=== PATIENT | male | born 1955 | race Caucasian/White ===

== ENCOUNTER 2019-08-26 11:48 | Inpatient (IN) | payer MEDICARE ==
[~2019-08-26] VITALS: Ht 175.3 cm; Wt 91.2 kg
[~2019-08-26 11:48] MED LIST: ATOR10 PO; CYCL10 PO; Glucophage1000 MG PO; METO100ER PO; Omeprazole20 M1 PO; Viagra100 MG PO; ZESTORETIC 20-251 EA PO
[2019-08-26] MEDS ORDERED: VASCULERA630 MG PO (13:09)
[2019-08-26] MEDS ORDERED: LIRA0.6P SC (13:09)
[2019-08-26 13:28] LABS: BASOPHILS ABSOLUTE AUTO 0.06 K/mm3 (0.00-0.23); BASOPHILS PERCENT AUTO 0 % (0-2); EOSINOPHILS PERCENT AUTO 0 % (0-6); Hemoglobin 14.4 g/dL (13.5-17.5); IMMATURE GRAN ABSOLUTE AUTO 0.18 K/mm3 (0.00-0.10); IMMATURE GRAN PERCENT AUTO 1 % (0-1); LYMPHOCYTES ABSOLUTE AUTO 1.21 K/mm3 (0.84-5.20); LYMPHOCYTES PERCENT AUTO 6 % (21-46); MONOCYTES ABSOLUTE AUTO 0.91 K/mm3 (0.16-1.47); MONOCYTES PERCENT AUTO 4 % (4-13); Mean Corpuscular HGB 30.9 pg (26.0-34.0); Mean Corpuscular HGB Conc 34.3 g/dL (31.5-36.5); Mean Corpuscular Volume 90 fL (80-100); Mean Platelet Volume 10.6 fL (9.1-12.4); NEUTROPHILS ABSOLUTE AUTO 18.31 K/mm3 (1.96-9.15); NEUTROPHILS PERCENT AUTO 89 % (41-73); Platelet Count 309 K/mm3 (150-400); RDW Coefficient Variation 12.3 % (11.7-14.2); RDW Standard Deviation 40.8 fL (35.1-46.3); Red Blood Cell Count 4.66 M/mm3 (4.30-5.90); White Blood Cell Count 20.67 K/mm3 (4.00-11.30)
[2019-08-26 13:51] LABS: Albumin, Blood 3.2 g/dL (3.4-5.0); Albumin/Globulin Ratio 0.6 (0.8-1.8); Bilirubin, Total 1.7 mg/dL (0.1-1.0); Bun/Creatinine Ratio 17.9 (12.0-20.0); Calcium, Blood 9.8 mg/dL (8.5-10.1); Creatinine, Blood 2.29 mg/dL (0.60-1.20); Globulin, Blood 5.4 g/dL (2.2-4.0); Potassium, Blood 3.4 mmol/L (3.5-5.5); Total Protein, Blood 8.6 g/dL (6.4-8.2)
[2019-08-26 14:05] LABS: Source, Urine Clean Catch
[2019-08-26 14:09] LABS: Appearance, Urine Cloudy (Clear); Blood, Urine 4+ (Neg); Color, Urine Yellow (P-Yellow); Glucose Qualitative, Urine 2+ (Neg); Ketones, Urine 1+ (Neg); Leukocyte Esterase, Urine 3+ (Neg); Nitrite, Urine Neg (Neg); Protein, Urine 3+ (Neg); Urobilinogen, Urine 2+ (Normal)
[2019-08-26 14:21] LABS: Bacteria Many /hpf; Bilirubin, Urine 1+ (Neg); Squamous Epithelial Cells Mod /hpf (Few); White Blood Cells, Urine 50-100 /hpf (0-5)
[2019-08-26 14:22] LABS: Mucus Mod (0-Heavy)
[2019-08-26] MEDS ORDERED: PIOGLITAZONE HC15 MG PO (15:50)
[2019-08-26] MEDS ORDERED: BASAGLAR K100 UNIT/2 SC (16:23)
--- NOTE | 2019-08-26 17:54 | NUR ---
SUMMARY Assumed care of pt upon arrival to unit at 1645 from emergency department. Pt arrived accompanied by Maria De Jesus RN and spouse. Independently transferred from ED gurney to ICU bed. Pt PCU status. Pt on room air. Sinus rhtyhm per monitor. Pt and spouse state that pt has had poor appetite for 9 days. Pt states he is feeling much better than he did upon arrival to ED and states he would like something to eat. Pt verbalizes understanding of fall prevention interventions. NS infusing per orders. Bed in lowest position. Call light in reach. Pt denies need at this time.
[2019-08-26 18:36] LABS: Albumin, Blood 2.4 g/dL (3.4-5.0); Albumin/Globulin Ratio 0.6 (0.8-1.8); Bilirubin, Total 0.8 mg/dL (0.1-1.0); Bun/Creatinine Ratio 19.3 (12.0-20.0); Calcium, Blood 8.2 mg/dL (8.5-10.1); Creatinine, Blood 2.02 mg/dL (0.60-1.20); Globulin, Blood 4.3 g/dL (2.2-4.0); Magnesium, Blood 1.6 mg/dL (1.6-2.4); Phosphorus, Blood 2.6 mg/dL (2.5-4.9); Potassium, Blood 3.3 mmol/L (3.5-5.5); Total Protein, Blood 6.7 g/dL (6.4-8.2)
--- NOTE | 2019-08-26 19:00 | NUR ---
ASSUMED CARE ASSUMED CARE OF PATIENT. AWAKE AND ALERT. ORIENTED AND COOPERATIVE. REPOSITIONS SELF IN BED. UP TO BSC WITH STANDBY ASSIST. DENIES C/O PAIN OR DISCOMFORT. MONITOR SHOWS NSR, RATE 70s. RESPIRATIONS EVEN AND UNLABORED. RA SATS STABLE. SEE SHIFT ASSESSMENT FOR FULL ASSESSMENT.
[2019-08-26 22:14] LABS: Chloride, Urine, Random 48 mmol/L (55-125); Sodium, Urine, Random 48 mmol/L (20-110)
[2019-08-27 03:28] LABS: BASOPHILS ABSOLUTE AUTO 0.01 K/mm3 (0.00-0.23); BASOPHILS PERCENT AUTO 0 % (0-2); EOSINOPHILS ABSOLUTE AUTO 0.03 K/mm3 (0.00-0.68); EOSINOPHILS PERCENT AUTO 1 % (0-6); Hematocrit 32.3 % (37.0-53.0); Hemoglobin 11.1 g/dL (13.5-17.5); IMMATURE GRAN ABSOLUTE AUTO 0.06 K/mm3 (0.00-0.10); IMMATURE GRAN PERCENT AUTO 1 % (0-1); LYMPHOCYTES ABSOLUTE AUTO 1.08 K/mm3 (0.84-5.20); LYMPHOCYTES PERCENT AUTO 17 % (21-46); MONOCYTES ABSOLUTE AUTO 0.56 K/mm3 (0.16-1.47); MONOCYTES PERCENT AUTO 9 % (4-13); Mean Corpuscular HGB 30.5 pg (26.0-34.0); Mean Corpuscular HGB Conc 34.4 g/dL (31.5-36.5); Mean Corpuscular Volume 89 fL (80-100); Mean Platelet Volume 9.9 fL (9.1-12.4); NEUTROPHILS ABSOLUTE AUTO 4.54 K/mm3 (1.96-9.15); NEUTROPHILS PERCENT AUTO 72 % (41-73); Platelet Count 213 K/mm3 (150-400); RDW Coefficient Variation 12.3 % (11.7-14.2); RDW Standard Deviation 39.7 fL (35.1-46.3); Red Blood Cell Count 3.64 M/mm3 (4.30-5.90); White Blood Cell Count 6.28 K/mm3 (4.00-11.30)
[2019-08-27 03:45] LABS: Albumin, Blood 2.3 g/dL (3.4-5.0); Albumin/Globulin Ratio 0.6 (0.8-1.8); Bilirubin, Total 0.9 mg/dL (0.1-1.0); Bun/Creatinine Ratio 20.2 (12.0-20.0); Calcium, Blood 8.1 mg/dL (8.5-10.1); Creatinine, Blood 1.68 mg/dL (0.60-1.20); Globulin, Blood 3.9 g/dL (2.2-4.0); Potassium, Blood 3.3 mmol/L (3.5-5.5); Total Protein, Blood 6.2 g/dL (6.4-8.2)
--- NOTE | 2019-08-27 05:56 | NUR ---
SHIFT SUMMARY NO ACUTE CHANGES DURING NOC. SLEPT INTERMITTENTLY. ORIENTED AND COOPERATIVE. UP TO BSC WITH STANDBY ASSIST WITHOUT DIFFICULTY. VOIDING WITHOUT DIFFICULTY. MONITOR SHOWS NSR. BP STABLE. TMAX 99.5F DURING SHIFT. RESPIRATIONS EVEN AND UNLABORED. RA SATS STABLE. NS INFUSING @ 150CC/HR PER ORDER. DENIES C/O PAIN OR NAUSEA. WILL REPORT TO DAY SHIFT RN WHEN AVAILABLE.
--- NOTE | 2019-08-27 07:00 | NUR ---
Recieved report from noc RN. Patient laying in bed and awakens easily to verbal stimuli. He is on RA and sats 96%. He is alert and oriented and is able to communicate his needs and denie any current pain. He has 18ga LFA dressing intact and site WNL's and is infusing NS at 150ml/hr. He also has 20ga RFA dressing intcat and site WNL's and is flushed and SL'd HR 80's, 146/76 and temp 98.2. Patient is very pleasant and hopes to go home today. He has urinal at bedside and uses appropriately.
--- NOTE | 2019-08-27 09:34 | NUR ---
Patient tolerated breakfast and meds well. came by and stayed breif time. He is up to bedside cammode ans SBA and ambulated well. He remains on RA and statesd he feels that he is at almost 100% of how he feels normally. He ndenies any current needs or pain. VSS
--- NOTE | 2019-08-27 11:59 | NUR ---
Patient up up to bedside cammode several times and transfered without difficulty. He ambulated to shower and is currently in there. VSS. He has had several visitors. He denies any pain or needs.
--- NOTE | 2019-08-27 13:58 | NUR ---
OT IN WITH PATIENT, NO SIGNIFICANT CHANGES. VSS
--- NOTE | 2019-08-27 16:23 | NUR ---
Patient up to bedside cammode. CBG 168 and received 3 units Humalog. VSS. NS reduced to 100ml/hr. No other significant changes.
--- NOTE | 2019-08-27 18:32 | NUR ---
Patient resting in bed watching TV with at bedside. Should be discharged home tomorrow. VSS. Remains on RA sats upper 90%'s. He continues NS at 100ml/hr.
--- NOTE | 2019-08-27 18:47 | NUR ---
Mr. Izquierdo is a very pleasant man who was open to visit. Per admit trigger, I spoke to him about the benfits and purpose of advanced care planning. He was interested, but want to do this paperwork post-discharge. He reports a strong fausto in a Gentle and loving God. Prayer and continued encouragement offered. I will remain available.
--- NOTE | 2019-08-27 19:15 | NUR ---
ASSUMED CARE BEDSIDE REPORT RECIEVED. PT IS LAYING IN BED, AWAKE, ALERT, AND ORIENTED. PT DENIES PAIN OR DISCOMFORT. VITAL SIGNS STABLE. PT ON RA. NS INFUSING AT 100 ML/HR. PT GETS UP TO BSC INDEPENDENTLY. NO FAMILY AT BEDSIDE. WILL CONTINUE TO MONITOR.
[2019-08-28 03:56] LABS: BASOPHILS ABSOLUTE AUTO 0.01 K/mm3 (0.00-0.23); BASOPHILS PERCENT AUTO 0 % (0-2); EOSINOPHILS ABSOLUTE AUTO 0.07 K/mm3 (0.00-0.68); EOSINOPHILS PERCENT AUTO 1 % (0-6); Hematocrit 31.9 % (37.0-53.0); Hemoglobin 10.8 g/dL (13.5-17.5); IMMATURE GRAN ABSOLUTE AUTO 0.04 K/mm3 (0.00-0.10); IMMATURE GRAN PERCENT AUTO 1 % (0-1); LYMPHOCYTES ABSOLUTE AUTO 1.34 K/mm3 (0.84-5.20); LYMPHOCYTES PERCENT AUTO 22 % (21-46); MONOCYTES ABSOLUTE AUTO 0.67 K/mm3 (0.16-1.47); MONOCYTES PERCENT AUTO 11 % (4-13); Mean Corpuscular HGB 30.2 pg (26.0-34.0); Mean Corpuscular HGB Conc 33.9 g/dL (31.5-36.5); Mean Corpuscular Volume 89 fL (80-100); Mean Platelet Volume 9.9 fL (9.1-12.4); NEUTROPHILS ABSOLUTE AUTO 3.92 K/mm3 (1.96-9.15); NEUTROPHILS PERCENT AUTO 65 % (41-73); Platelet Count 211 K/mm3 (150-400); RDW Coefficient Variation 12.2 % (11.7-14.2); Red Blood Cell Count 3.58 M/mm3 (4.30-5.90); White Blood Cell Count 6.05 K/mm3 (4.00-11.30)
[2019-08-28 04:13] LABS: Albumin, Blood 2.2 g/dL (3.4-5.0); Albumin/Globulin Ratio 0.6 (0.8-1.8); Bilirubin, Total 0.7 mg/dL (0.1-1.0); Bun/Creatinine Ratio 17.4 (12.0-20.0); C-REACTIVE PROTEIN, EXT RANGE 6.34 mg/dL (0.000-0.300); Calcium, Blood 8.2 mg/dL (8.5-10.1); Creatinine, Blood 1.38 mg/dL (0.60-1.20); Globulin, Blood 3.7 g/dL (2.2-4.0); Potassium, Blood 3.2 mmol/L (3.5-5.5); Total Protein, Blood 5.9 g/dL (6.4-8.2)
--- NOTE | 2019-08-28 05:49 | NUR ---
SHIFT SUMMARY NO ACUTE CHANGES THIS SHIFT. PT HAS SLEPT THROUGHOUT THE NIGHT. WHEN AWAKE PT IS ALERT AND ORIENTED. PT HAS DENIED PAIN OR DISCOMFORT. VITAL SIGNS HAVE REMAINED STABLE, PT ON ROOM AIR. NS INFUSING AT 100 ML/HR. PT UP TO BSC INDEPENDENTLY THROUGHOUT THE SHIFT. WILL CONTINUE TO MONITOR AND REPORT OFF TO ONCOMING RN.
[2019-08-28] MEDS ORDERED: CEFP200 PO (12:35)
[2019-08-28] MEDS ORDERED: LEVFLO500 PO (12:36)
[2019-08-28] MEDS ORDERED: Florastor250 MG PO (12:36)
[2019-08-28] MEDS ORDERED: LISI5 PO (12:37)
== END 2019-08-28 13:25 | disposition home or self-care (01) | DRG 872 ==
LOC: ER 11:48 → ICUW 15:43 → ICUE 16:46
PROVIDERS: Emergency Medicine; Physician Assistant; ADMIT Hospitalist
DX: A41.59 Other Gram-negative sepsis (principal); N17.9 Acute kidney failure, unspecified; N39.0 Urinary tract infection, site not specified; R65.20 Severe sepsis without septic shock; Z79.4 Long term (current) use of insulin; Z87.891 Personal history of nicotine dependence; K44.9 Diaphragmatic hernia without obstruction or gangrene; R16.1 Splenomegaly, not elsewhere classified; Z85.46 Personal history of malignant neoplasm of prostate; K21.9 Gastro-esophageal reflux disease without esophagitis; E78.5 Hyperlipidemia, unspecified; N18.3 Chronic kidney disease, stage 3 (moderate); I12.9 Hypertensive chronic kidney disease with stage 1 through stage 4 chronic kidney disease, or unspecified chronic kidney disease; G47.33 Obstructive sleep apnea (adult) (pediatric); E11.22 Type 2 diabetes mellitus with diabetic chronic kidney disease; N52.9 Male erectile dysfunction, unspecified
CPT/HCPCS: 36415; 71046; 74176; 80053; 81001; 82436; 82947; 83605; 83735; 84100; 84300; 84484; 85025; 86140; 87040; 87077; 87086; 87186; 93005; 93010; 96361; 96365; 96367; 96372-59; 97162; 97165; 97530; 97535; 99285-25; A9270-GY; J0696; J1650; J1956; J7030

== ENCOUNTER 2020-12-07 08:24 | Day surgery (SDC) | payer OTHER ==
[~2020-12-07] VITALS: Ht 172.7 cm; Wt 97.0 kg
[~2020-12-07 08:24] MED LIST changes: +ATOR20 PO; +BASAGLAR K100 UNIT/1 SC; +BASAGLAR K100 UNIT/2 SC; +CEFP200 PO; +Cialis5 MG; +Florastor250 MG PO; +LEVFLO500 PO; +LIRA0.6P SC; +LISI5 PO; +METOPROLOL TAR100 M2 PO; +OMEP20ER PO; +PIOG15 PO; +PIOGLITAZONE HC15 MG PO; +Prinivil10 MG PO; +SUCR1 PO; +VASCULERA630 MG PO; +VICTOZA 2-0.6 MG/0.1 SC
== END 2020-12-07 10:22 | disposition home or self-care (01) ==
LOC: ORSCSDS 08:24
PROVIDERS: Student in an Organized Health Care Education/Training Program
PROC: 0DB58ZX Excision of Esophagus, Via Natural or Artificial Opening Endoscopic, Diagnostic (ICD-10-PCS; principal; 2020-12-07 09:45)
PROC: 0DB48ZX Excision of Esophagogastric Junction, Via Natural or Artificial Opening Endoscopic, Diagnostic (ICD-10-PCS; principal; 2020-12-07 09:45)
DX: R13.10 Dysphagia, unspecified (principal); K21.9 Gastro-esophageal reflux disease without esophagitis; I10 Essential (primary) hypertension; E78.5 Hyperlipidemia, unspecified; E11.9 Type 2 diabetes mellitus without complications; K44.9 Diaphragmatic hernia without obstruction or gangrene; E66.9 Obesity, unspecified; Z68.32 Body mass index [BMI] 32.0-32.9, adult; Z79.4 Long term (current) use of insulin; Z79.899 Other long term (current) drug therapy
CPT/HCPCS: 82947; 88305; J2250; J2704; J7120

== ENCOUNTER → 2021-03-15 | Outpatient (CLI) | payer OTHER ==
[2021-03-15 17:26] LABS: BASOPHILS ABSOLUTE AUTO 0.04 K/mm3 (0.00-0.23); BASOPHILS PERCENT AUTO 1 % (0-2); EOSINOPHILS ABSOLUTE AUTO 0.15 K/mm3 (0.00-0.68); EOSINOPHILS PERCENT AUTO 3 % (0-6); Hematocrit 38.5 % (37.0-53.0); Hemoglobin 12.6 g/dL (13.5-17.5); IMMATURE GRAN ABSOLUTE AUTO 0.02 K/mm3 (0.00-0.10); IMMATURE GRAN PERCENT AUTO 0 % (0-1); LYMPHOCYTES ABSOLUTE AUTO 1.54 K/mm3 (0.84-5.20); LYMPHOCYTES PERCENT AUTO 27 % (21-46); MONOCYTES ABSOLUTE AUTO 0.46 K/mm3 (0.16-1.47); MONOCYTES PERCENT AUTO 8 % (4-13); Mean Corpuscular HGB 30.7 pg (26.0-34.0); Mean Corpuscular HGB Conc 32.7 g/dL (31.5-36.5); Mean Corpuscular Volume 94 fL (80-100); Mean Platelet Volume 11.5 fL (9.1-12.4); NEUTROPHILS ABSOLUTE AUTO 3.57 K/mm3 (1.96-9.15); NEUTROPHILS PERCENT AUTO 62 % (41-73); Platelet Count 157 K/mm3 (150-400); RDW Coefficient Variation 13.3 % (11.7-14.2); RDW Standard Deviation 45.1 fL (35.1-46.3); White Blood Cell Count 5.78 K/mm3 (4.00-11.30)
[2021-03-15 17:34] LABS: Albumin, Blood 3.7 g/dL (3.4-5.0); Albumin/Globulin Ratio 1.1 (0.8-1.8); Bilirubin, Total 1.6 mg/dL (0.1-1.0); Bun/Creatinine Ratio 16.6 (12.0-20.0); Calcium, Blood 9.2 mg/dL (8.5-10.1); Creatinine, Blood 1.75 mg/dL (0.60-1.20); Globulin, Blood 3.3 g/dL (2.2-4.0); Potassium, Blood 3.4 mmol/L (3.5-5.5)
== END ==
LOC: LAB SHORT 17:18 → PLD 17:18
PROVIDERS: Family Medicine
DX: R60.0 Localized edema (principal)
CPT/HCPCS: 80053; 83880; 85025

== ENCOUNTER 2021-08-25 06:28 | Day surgery (SDC) | payer OTHER ==
[~2021-08-25] VITALS: Ht 170.2 cm; Wt 97.0 kg
[2021-08-25] MEDS ORDERED: FURO40 PO (07:17)
[2021-08-25] MEDS ORDERED: POTA10T PO (07:19)
[2021-08-25 07:31] LABS: BASOPHILS ABSOLUTE AUTO 0.03 K/mm3 (0.00-0.23); BASOPHILS PERCENT AUTO 0 % (0-2); EOSINOPHILS PERCENT AUTO 3 % (0-6); Hematocrit 42.5 % (37.0-53.0); Hemoglobin 14.4 g/dL (13.5-17.5); IMMATURE GRAN ABSOLUTE AUTO 0.02 K/mm3 (0.00-0.10); IMMATURE GRAN PERCENT AUTO 0 % (0-1); LYMPHOCYTES ABSOLUTE AUTO 1.19 K/mm3 (0.84-5.20); LYMPHOCYTES PERCENT AUTO 16 % (21-46); MONOCYTES ABSOLUTE AUTO 0.61 K/mm3 (0.16-1.47); MONOCYTES PERCENT AUTO 8 % (4-13); Mean Corpuscular HGB 30.8 pg (26.0-34.0); Mean Corpuscular HGB Conc 33.9 g/dL (31.5-36.5); Mean Corpuscular Volume 91 fL (80-100); Mean Platelet Volume 10.8 fL (9.1-12.4); NEUTROPHILS PERCENT AUTO 72 % (41-73); Platelet Count 178 K/mm3 (150-400); RDW Coefficient Variation 13.8 % (11.7-14.2); Red Blood Cell Count 4.67 M/mm3 (4.30-5.90); White Blood Cell Count 7.35 K/mm3 (4.00-11.30)
[2021-08-25 07:48] LABS: International Normalized Ratio 1.16; Prothrombin Time Results 12.1 Sec (9.7-11.5)
[2021-08-25 07:58] LABS: Bun/Creatinine Ratio 16.3 (12.0-20.0); Calcium, Blood 8.9 mg/dL (8.5-10.1); Creatinine, Blood 1.23 mg/dL (0.60-1.20); Potassium, Blood 3.7 mmol/L (3.5-5.5)
--- NOTE | 2021-08-25 09:00 | NUR ---
[facility]. alert and oriented. TR band in place to right radial artery. site soft and nontender. no hematoma. no bleeding.
--- NOTE | 2021-08-25 10:45 | NUR ---
TR BAND IN PLACE. CONTINUING TO REMOVE AIR IN INCREMENTS OF 2CC. SITE REMAINS SFT AND NONTENDER.
--- NOTE | 2021-08-25 11:10 | NUR ---
AIR COMPLETELY REMOVED FROM TR BAND. TR BAND REMAINS IN PLACE. SITE SOFT AND NON TENDER.
--- NOTE | 2021-08-25 11:35 | NUR ---
BEGAN REMOVAL OF AIOR FROM TR BAND. SITE CLEAR NO BLEEDING, NO HEMATOMA.
--- NOTE | 2021-08-25 12:00 | NUR ---
PATIENT UP TO RESTROOM. PATEINT DRESSING SELF WITH SOME ASSIST WITH SHOES. TR BAND REMOVED SITE WITHOUT BLEEDING OR HEMATOMA. CLOTH DOT PLACED TO SITE AND ARM BOARD PLACED TO RIGHT WRIST. IV SITE DCED WITH ACTHETER IN TACT.
--- NOTE | 2021-08-25 12:20 | NUR ---
PATIENT VERBALIZED UNDERSTANDING OF DISCHARGE INSTRUCTIONS AND PRECAUTIONS. TAKEN TO IN WAITING CAR VIA [facility] CHAIR BY CHARLIE URBAN
== END 2021-08-25 12:33 | disposition home or self-care (01) ==
LOC: MHTC 06:28
PROVIDERS: Internal Medicine Cardiovascular Disease
DX: I25.118 Atherosclerotic heart disease of native coronary artery with other forms of angina pectoris (principal); I11.0 Hypertensive heart disease with heart failure; I50.21 Acute systolic (congestive) heart failure; I25.5 Ischemic cardiomyopathy; E11.9 Type 2 diabetes mellitus without complications; Z79.84 Long term (current) use of oral hypoglycemic drugs
CPT/HCPCS: 76937; 80048; 85025; 85610; 93454; 99152; 99153; C1769; C1887; C1894; J1644; J2250; J3010; J7030; J7050; Q9967

== ENCOUNTER 2021-10-17 08:38 | Emergency (ER) | payer OTHER ==
[~2021-10-17] VITALS: Ht 172.7 cm; Wt 97.1 kg
[~2021-10-17 08:38] MED LIST changes: +FURO40 PO; +POTA10T PO
[2021-10-17] MEDS ORDERED: LISI20 PO (09:15)
[2021-10-17] MEDS ORDERED: FUROSEMIDE40 MG PO (09:15)
[2021-10-17] MEDS ORDERED: NITROGLYCERIN0.4 M3 SL (09:16)
[2021-10-17] MEDS ORDERED: ATOR10 PO (09:18)
[2021-10-17 09:54] LABS: Influenza A, PCR NEGATIVE (NEGATIVE); Influenza B, PCR NEGATIVE (NEGATIVE); Resp Syncytial Virus, PCR NEGATIVE (NEGATIVE)
[2021-10-17 09:55] LABS: SARS-Cov-2 (COVID-19) PCR, MMC POSITIVE (NEGATIVE)
[2021-10-17 11:25] LABS: BASOPHILS ABSOLUTE AUTO 0.01 K/mm3 (0.00-0.23); BASOPHILS PERCENT AUTO 0 % (0-2); EOSINOPHILS PERCENT AUTO 0 % (0-6); Hematocrit 41.4 % (37.0-53.0); IMMATURE GRAN ABSOLUTE AUTO 0.02 K/mm3 (0.00-0.10); IMMATURE GRAN PERCENT AUTO 1 % (0-1); LYMPHOCYTES ABSOLUTE AUTO 0.59 K/mm3 (0.84-5.20); LYMPHOCYTES PERCENT AUTO 19 % (21-46); MONOCYTES PERCENT AUTO 6 % (4-13); Mean Corpuscular HGB 30.2 pg (26.0-34.0); Mean Corpuscular HGB Conc 33.8 g/dL (31.5-36.5); Mean Corpuscular Volume 89 fL (80-100); Mean Platelet Volume 11.6 fL (9.1-12.4); NEUTROPHILS PERCENT AUTO 74 % (41-73); Platelet Count 101 K/mm3 (150-400); RDW Coefficient Variation 12.8 % (11.7-14.2); Red Blood Cell Count 4.63 M/mm3 (4.30-5.90); White Blood Cell Count 3.12 K/mm3 (4.00-11.30)
[2021-10-17 11:33] LABS: Albumin, Blood 3.6 g/dL (3.4-5.0); Albumin/Globulin Ratio 0.9 (0.8-1.8); Bilirubin, Total 1.4 mg/dL (0.1-1.0); Bun/Creatinine Ratio 15.9 (12.0-20.0); Calcium, Blood 9.2 mg/dL (8.5-10.1); Creatinine, Blood 1.45 mg/dL (0.60-1.20); Globulin, Blood 4.1 g/dL (2.2-4.0); Potassium, Blood 3.3 mmol/L (3.5-5.5); Total Protein, Blood 7.7 g/dL (6.4-8.2)
[2021-10-17 11:46] LABS: International Normalized Ratio 1.14; Prothrombin Time Results 11.9 Sec (9.7-11.5)
[2021-10-17] MEDS ORDERED: Aspirin EC81 MG PO (12:41)
== END 2021-10-17 13:05 | disposition home or self-care (01) ==
LOC: ER 08:38
PROVIDERS: Emergency Medicine
DX: U07.1 COVID-19 (principal); R55 Syncope and collapse; I10 Essential (primary) hypertension; R04.2 Hemoptysis; R63.4 Abnormal weight loss; E11.9 Type 2 diabetes mellitus without complications; E78.5 Hyperlipidemia, unspecified; K21.9 Gastro-esophageal reflux disease without esophagitis; J18.9 Pneumonia, unspecified organism; Z88.8 Allergy status to other drugs, medicaments and biological substances; Z79.4 Long term (current) use of insulin; Z79.899 Other long term (current) drug therapy; Z87.891 Personal history of nicotine dependence; Z85.46 Personal history of malignant neoplasm of prostate; G47.30 Sleep apnea, unspecified
CPT/HCPCS: 0241U; 36415; 71045; 80053; 83880; 84484; 85025; 85610; 85730; 93005; 93010; 99285-25

== ENCOUNTER 2022-07-10 10:25 | Emergency (ER) | payer OTHER ==
[~2022-07-10] VITALS: Ht 172.7 cm; Wt 99.8 kg
[~2022-07-10 10:25] MED LIST changes: +Aspirin EC81 MG PO; +FUROSEMIDE40 MG PO; +LISI20 PO; +NITROGLYCERIN0.4 M3 SL
[2022-07-10 11:34] LABS: BASOPHILS ABSOLUTE AUTO 0.04 K/mm3 (0.00-0.23); BASOPHILS PERCENT AUTO 1 % (0-2); EOSINOPHILS ABSOLUTE AUTO 0.18 K/mm3 (0.00-0.68); EOSINOPHILS PERCENT AUTO 4 % (0-6); Hematocrit 30.2 % (37.0-53.0); Hemoglobin 9.2 g/dL (13.5-17.5); IMMATURE GRAN ABSOLUTE AUTO 0.01 K/mm3 (0.00-0.10); IMMATURE GRAN PERCENT AUTO 0 % (0-1); LYMPHOCYTES ABSOLUTE AUTO 0.88 K/mm3 (0.84-5.20); LYMPHOCYTES PERCENT AUTO 18 % (21-46); MONOCYTES ABSOLUTE AUTO 0.42 K/mm3 (0.16-1.47); MONOCYTES PERCENT AUTO 8 % (4-13); Mean Corpuscular HGB 24.3 pg (26.0-34.0); Mean Corpuscular HGB Conc 30.5 g/dL (31.5-36.5); Mean Corpuscular Volume 80 fL (80-100); Mean Platelet Volume 10.6 fL (9.1-12.4); NEUTROPHILS PERCENT AUTO 70 % (41-73); Platelet Count 193 K/mm3 (150-400); RDW Coefficient Variation 17.8 % (11.7-14.2); Red Blood Cell Count 3.78 M/mm3 (4.30-5.90); White Blood Cell Count 5.03 K/mm3 (4.00-11.30)
[2022-07-10 11:56] LABS: Albumin, Blood 3.8 g/dL (3.4-5.0); Albumin/Globulin Ratio 1.1 (0.8-1.8); Bilirubin, Total 0.9 mg/dL (0.1-1.0); Bun/Creatinine Ratio 24.2 (12.0-20.0); Calcium, Blood 9.5 mg/dL (8.5-10.1); Creatinine, Blood 1.24 mg/dL (0.60-1.20); Globulin, Blood 3.6 g/dL (2.2-4.0); Potassium, Blood 3.8 mmol/L (3.5-5.5); Total Protein, Blood 7.4 g/dL (6.4-8.2)
== END 2022-07-10 13:14 | disposition home or self-care (01) ==
LOC: ER 10:25
PROVIDERS: Emergency Medicine
DX: I11.0 Hypertensive heart disease with heart failure (principal); I50.9 Heart failure, unspecified; R41.0 Disorientation, unspecified; E11.9 Type 2 diabetes mellitus without complications; K21.9 Gastro-esophageal reflux disease without esophagitis; G47.30 Sleep apnea, unspecified; E78.5 Hyperlipidemia, unspecified; Z88.8 Allergy status to other drugs, medicaments and biological substances; Z88.6 Allergy status to analgesic agent; Z85.46 Personal history of malignant neoplasm of prostate; Z87.891 Personal history of nicotine dependence
CPT/HCPCS: 36415; 71046; 80053; 83880; 84484; 85025; 93005; 93010; J1940